=== PATIENT | male | born 1970 | race Hispanic/Latino ===

== ENCOUNTER 2018-10-25 12:47 | Observation (INO) | payer SELFPAY ==
[2018-10-25 13:53] LABS: Absolute Lymphocytes (CBC) 2.5 K/uL (0.7-4.9); Absolute Monocytes 0.6 K/uL (0.1-1.3); Absolute Neutrophil 5.3 K/uL (1.8-8.0); Basophils % 0.4 % (0-1.3); Eosinophils % 1.7 % (0-4.4); Hematocrit 46.1 % (39.6-49.0); MPV 9.4 fL (7.6-11.3); Monocytes % 7.3 % (3.3-12.3); RBC Red Blood Cell Count 5.42 M/uL (4.33-5.43)
--- NOTE | 2018-10-25 14:18 | RAD REPORT ---
EXAM DESCRIPTION: RAD - Chest Single View - 10/25/2018 2:04 pm CLINICAL HISTORY: CHEST PAIN Chest pain. COMPARISON: No comparisons FINDINGS: Portable technique limits examination quality. The lungs are grossly clear. The heart is normal in size. No displaced fractures. IMPRESSION: No acute intrathoracic process suspected.
[2018-10-25 14:22] LABS: ALT/SGPT 35 U/L (12-78); AST/SGOT 22 U/L (15-37); Albumin 3.7 g/dL (3.4-5.0); Alkaline Phosphatase 90 U/L (45-117); BUN Blood Urea Nitrogen 18 mg/dL (7-18); Bicarbonate 26 mmol/L (21-32); Bilirubin Direct 0.1 mg/dL (0-0.2); Bilirubin Total 0.5 mg/dL (0.2-1.0); Glucose Level 106 mg/dL (74-106); Lipase 143 U/L (73-393); NT PRO-BNP 24 pg/mL (<125); Potassium 4.1 mmol/L (3.5-5.1); Protein, Total 7.7 g/dL (6.4-8.2); Sodium Level 143 mmol/L (136-145); Troponin (Emerg Dept Use Only) < 0.02 ng/mL (0.0-0.045)
[2018-10-25] MEDS ORDERED: NA CHLORIDE 0.9% 1,000 ML ONE (14:23)
--- NOTE | 2018-10-25 15:22 | ER ---
Nurse's Notes [facility] Name: Efrain Landin Age: 48 yrs Sex: Male : 1970 Arrival Date: 10/25/2018 Time: 12:51 Bed 24 Private MD: Diagnosis: Chest pain, unspecified Presentation: 10/25 13:03 Presenting complaint: Patient states: "I was climbing up a ladder about 300 feet when I aa5 started feeling dizzy, my feet were numb, and I got a sharp pain in my stomach". pt also reports vomiting. Pt currently denies symptoms. Transition of care: patient was not received from another setting of care. Onset of symptoms was October 25, 2018. Risk Assessment: Do you want to hurt yourself or someone else? Patient reports no desire to harm self or others. Initial Sepsis Screen: Does the patient meet any 2 criteria? No. Patient's initial sepsis screen is negative. Does the patient have a suspected source of infection? No. Patient's initial sepsis screen is negative. Care prior to arrival: None. 13:03 Method Of Arrival: Ambulatory aa5 13:03 Acuity: ANGELA 3 aa5 Historical: - Allergies: 13:05 No Known Allergies; aa5 - Home Meds: 13:05 None [Active]; aa5 - PMHx: 13:05 None; aa5 - PSHx: 13:05 Knee surgery; aa5 - Immunization history:: Adult Immunizations unknown. - Social history:: Smoking status: Patient/guardian denies using tobacco. - Ebola Screening: : No symptoms or risks identified at this time. - Family history:: not pertinent. - Hospitalizations: : No recent hospitalization is reported. Screenin:00 Abuse screen: Denies threats or abuse. Nutritional screening: No deficits noted. tl3 Tuberculosis screening: No symptoms or risk factors identified. Fall Risk None identified. Assessment: 14:00 General: Appears in no apparent distress. comfortable, well groomed, well developed, tl3 well nourished, Behavior is calm, cooperative, appropriate for age. Pain: Denies pain. Neuro: Level of Consciousness is awake, alert, obeys commands, Oriented to person, place, time, situation, Appropriate for age Reports dizziness. Cardiovascular: Patient's skin is warm and dry. Respiratory: Airway is patent Respiratory effort is even, unlabored, Respiratory pattern is regular, symmetrical. GI: Abdomen is round. : No signs and/or symptoms were reported regarding the genitourinary system. EENT: No signs and/or symptoms were reported regarding the EENT system. 15:20 Reassessment: Patient appears in no apparent distress at this time. No changes from tl3 previously documented assessment. Patient and/or family updated on plan of care and expected duration. Pain level reassessed. Patient is alert, oriented x 3, equal unlabored respirations, skin warm/dry/pink. no needs at this time. 16:40 Reassessment: Patient appears in no apparent distress at this time. No changes from tl3 previously documented assessment. Patient and/or family updated on plan of care and expected duration. Pain level reassessed. Patient is alert, oriented x 3, equal unlabored respirations, skin warm/dry/pink. sandwich and drink offered. 19:03 Reassessment: Patient appears in no apparent distress at this time. No changes from tl3 previously documented assessment. Patient and/or family updated on plan of care and expected duration. Pain level reassessed. Patient is alert, oriented x 3, equal unlabored respirations, skin warm/dry/pink. awaiting transfer to room. 19:30 Reassessment: nurses still in report upstairs Shruthi will call [facility] for report. tl3 Vital Signs: 13:05 BP 117 / 84; Pulse 81; Resp 16 S; Temp 97.1(TE); Pulse Ox 95% on R/A; Weight 117.93 kg aa5 (R); Height 5 ft. 6 in. (167.64 cm) (R); Pain 0/10; 13:55 BP 126 / 79; Pulse 65; Resp 24 S; Pulse Ox 97% on R/A; Pain 0/10; jp3 14:00 BP 120 / 80; Pulse 58; Resp 18; Pulse Ox 97% ; tl3 15:20 BP 136 / 80; Pulse 58; Resp 18; Pulse Ox 99% on R/A; tl3 16:40 BP 122 / 62; Pulse 51; Resp 16; Pulse Ox 99% on R/A; tl3 19:03 BP 139 / 92; Pulse 58; Resp 18; Pulse Ox 99% on R/A; tl3 13:05 Body Mass Index 41.96 (117.93 kg, 167.64 cm) aa5 ED Course: 12:51 Patient arrived in ED. mr 13:03 Arm band placed on. aa5 13:04 Triage completed. aa5 13:10 Sigifredo Guzman MD is Attending Physician. rn 13:40 Initial lab(s) drawn, by me, sent to lab. Inserted saline lock: 20 gauge in right jp3 antecubital area, using aseptic technique. Blood collected. 13:46 EKG done, by donor services technician. reviewed by Sigifredo Guzman MD. 3 14:01 X-ray completed. Portable x-ray completed in exam room. Patient tolerated procedure sw well. 14:01 Bed in low position. Call light in reach. Side rails up X 1. security monitor on. Pulse jp3 ox on. NIBP on. 14:02 Lipase Sent. jp3 14:02 Basic Metabolic Panel Sent. jp3 14:02 LFT's Sent. jp3 14:02 NT PRO-BNP Sent. jp3 14:02 Troponin (emerg Dept Use Only) Sent. jp3 14:02 XRAY Chest (1 view) Sent. jp3 14:05 XRAY Chest (1 view) In Process Unspecified. EDHI 14:10 Salud Cuellar, RN is Primary Nurse. tl3 15:00 No provider procedures requiring assistance completed. Patient admitted, IV remains in tl3 place. 15:21 Lynda Mendoza MD is Hospitalizing Provider. rn 19:04 Urine Dipstick--Ancillary (enter results) Sent. tl3 Administered Medications: 14:18 Drug: NS 0.9% 500 ml Route: IV; Rate: bolus; Site: right antecubital; Delivery: Primary tl3 tubing; 15:25 Follow up: IV Status: Completed infusion; IV Intake: 1000ml tl3 Point of Care Testing: Blood Glucose: 13:40 Blood Glucose: 110 mg/dL; jp3 Ranges: Intake: 15:25 IV: 1000ml; Total: 1000ml. tl3 Outcome: 15:22 Decision to Hospitalize by Provider. rn 20:27 Patient left the ED. tl3 20:27 Admitted to [facility] tl3 20:27 Condition: stable 20:27 Instructed on the need for admit. Signatures: Dispatcher [employer] EDHI Flores Aguayo mr Sigifredo Guzman MD MD rn Calderon, Audri, RN RN aa5 Kavitha Melendez Tammy, RN RN tl3 Muna Sabillon sm3 Delfino Pardo jp3
--- NOTE | 2018-10-25 15:23 | EDPHYS ---
Physician Documentation [facility] Name: Efrain Landin Age: 48 yrs Sex: Male : 1970 Arrival Date: 10/25/2018 Time: 12:51 Bed 24 Private MD: ED Physician Sigifredo Guzman HPI: 10/25 13:37 This 48 yrs old Male presents to ER via Ambulatory with complaints of rn Dizziness, chest pain. 13:37 The patient presents with dizziness, lightheadedness. Onset: The symptoms/episode rn began/occurred just prior to arrival. Modifying factors: The symptoms are alleviated by nothing, the symptoms are aggravated by nothing. Severity of symptoms: At their worst the symptoms were moderate in the emergency department the symptoms have improved. The patient has not experienced similar symptoms in the past. Reports climbing structure at work, felt lightheaded, tingling to both feet, left sided chest pain, threw up one time, now resolved. No known cardiac problems. . Historical: - Allergies: 13:05 No Known Allergies; aa5 - Home Meds: 13:05 None [Active]; aa5 - PMHx: 13:05 None; aa5 - PSHx: 13:05 Knee surgery; aa5 - Immunization history:: Adult Immunizations unknown. - Social history:: Smoking status: Patient/guardian denies using tobacco. - Ebola Screening: : No symptoms or risks identified at this time. - Family history:: not pertinent. - Hospitalizations: : No recent hospitalization is reported. ROS: 13:37 Constitutional: Negative for fever, chills, and weight loss, Eyes: Negative for injury, rn pain, redness, and discharge, Neck: Negative for injury, pain, and swelling, Cardiovascular: Negative for palpitations, and edema, Respiratory: Negative for shortness of breath, cough, wheezing, and pleuritic chest pain, Abdomen/GI: Negative for abdominal pain, diarrhea, and constipation, MS/Extremity: Negative for injury and deformity, Skin: Negative for injury, rash, and discoloration, Neuro: Negative for headache, weakness, numbness, tingling, and seizure. Exam: 13:37 Constitutional: This is a well developed, well nourished patient who is awake, alert, rn and in no acute distress. Head/Face: Normocephalic, atraumatic. Eyes: Pupils equal round and reactive to light, extra-ocular motions intact. Lids and lashes normal. Conjunctiva and sclera are non-icteric and not injected. Cornea within normal limits. Periorbital areas with no swelling, redness, or edema. Neck: Trachea midline, no thyromegaly or masses palpated, and no cervical lymphadenopathy. Supple, full range of motion without nuchal rigidity, or vertebral point tenderness. No Meningismus. Cardiovascular: Regular rate and rhythm with a normal S1 and S2. No gallops, murmurs, or rubs. No JVD. No pulse deficits. Respiratory: Lungs have equal breath sounds bilaterally, clear to auscultation. No increased work of breathing, no retractions or nasal flaring. Abdomen/GI: soft, non-tender Skin: Warm, dry with normal turgor. Normal color with no rashes, no lesions, and no evidence of cellulitis. MS/ Extremity: Pulses equal, no cyanosis. Neurovascular intact. Full, normal range of motion. Equal circumference. Neuro: Awake and alert, GCS 15, oriented to person, place, time, and situation. Cranial nerves II-XII grossly intact. Motor strength 5/5 in all extremities. Sensory grossly intact. Cerebellar exam normal. Vital Signs: 13:05 BP 117 / 84; Pulse 81; Resp 16 S; Temp 97.1(TE); Pulse Ox 95% on R/A; Weight 117.93 kg aa5 (R); Height 5 ft. 6 in. (167.64 cm) (R); Pain 0/10; 13:55 BP 126 / 79; Pulse 65; Resp 24 S; Pulse Ox 97% on R/A; Pain 0/10; jp3 14:00 BP 120 / 80; Pulse 58; Resp 18; Pulse Ox 97% ; tl3 15:20 BP 136 / 80; Pulse 58; Resp 18; Pulse Ox 99% on R/A; tl3 16:40 BP 122 / 62; Pulse 51; Resp 16; Pulse Ox 99% on R/A; tl3 19:03 BP 139 / 92; Pulse 58; Resp 18; Pulse Ox 99% on R/A; tl3 13:05 Body Mass Index 41.96 (117.93 kg, 167.64 cm) aa MDM: 13:10 Patient medically screened. rn 15:21 Differential diagnosis: cardiac arrhythmia, hypovolemia, idiopathic dizziness, TIA, [place], golf tournament consultant event. Data reviewed: vital signs, nurses notes, lab test result(s), EKG, radiologic studies, and as a result, I will admit patient. Counseling: I had a detailed discussion with the patient and/or guardian regarding: the historical points, exam findings, and any diagnostic results supporting the discharge/admit diagnosis, lab results, radiology results, the need for further work-up and treatment in the hospital. Admission orders: after a detailed discussion of the patient's condition and case, the admit orders are written by me. 10/25 13:17 Order name: Basic Metabolic Panel; Complete Time: 14:27 rn 10/25 13:17 Order name: CBC with Diff; Complete Time: 14:27 rn 10/25 13:17 Order name: LFT's; Complete Time: 14:27 rn 10/25 13:17 Order name: NT PRO-BNP; Complete Time: 14:27 rn 10/25 13:17 Order name: Troponin (emerg Dept Use Only); Complete Time: 14:27 rn 10/25 13:17 Order name: Lipase; Complete Time: 14:27 rn 10/25 13:17 Order name: XRAY Chest (1 view); Complete Time: 14:27 rn 10/25 13:17 Order name: EKG; Complete Time: 13:18 rn 10/25 13:17 Order name: Cardiac monitoring; Complete Time: 14:02 rn 10/25 13:17 Order name: EKG - Nurse/Tech; Complete Time: 14:02 rn 10/25 13:17 Order name: IV Saline Lock; Complete Time: 14:02 rn 10/25 13:17 Order name: Labs collected and sent; Complete Time: 14:03 rn 10/25 17:56 Order name: Urine Dipstick--Ancillary (enter results) bd 10/25 13:17 Order name: O2 Per Protocol; Complete Time: 14:03 rn 10/25 13:17 Order name: O2 Sat Monitoring; Complete Time: 14:03 rn 10/25 13:17 Order name: Glucose Level; Complete Time: 14:02 rn Administered Medications: 14:18 Drug: NS 0.9% 500 ml Route: IV; Rate: bolus; Site: right antecubital; Delivery: Primary tl3 tubing; 15:25 Follow up: IV Status: Completed infusion; IV Intake: 1000ml tl3 Point of Care Testing: Blood Glucose: 13:40 Blood Glucose: 110 mg/dL; jp3 Ranges: Critical Glucose Levels:Adult <50 mg/dl or >400 mg/dl <40 mg/dl or >180 mg/dl Disposition: 10/25/18 15:22 Hospitalization ordered by Lynda Mendoza for Observation. Preliminary diagnosis is Chest pain, unspecified. - Bed requested for Telemetry/MedSurg (observation). - Status is Observation. tl3 - Condition is Stable. - Problem is new. - Symptoms have improved. UTI on Admission? No Signatures: Dispatcher [employer] EDMS Carolina Saldana Roman, MD MD rn Calderon, Audri RN RN aa5 Salud Cuellar RN RN tl3 Corrections: (The following items were deleted from the chart) 17:12 15:22 Hospitalization Ordered by Lynda Mendoza MD for Observation. Preliminary diagnosis bd is Chest pain, unspecified. Bed requested for Telemetry/MedSurg (observation). Status is Observation. Condition is Stable. Problem is new. Symptoms have improved. UTI on Admission? No. rn 20:27 17:12 10/25/2018 15:22 Hospitalization Ordered by Lynda Mendoza MD for Observation. tl3 Preliminary diagnosis is Chest pain, unspecified. Bed requested for Telemetry/MedSurg (observation). Status is Observation. Condition is Stable. Problem is new. Symptoms have improved. UTI on Admission? No. bd
--- NOTE | 2018-10-25 17:09 | EKG ---
Test Date: 2018-10-25 Test Time: 13:19:40 [employer]fuels Production Manager: ARYAN MEASUREMENT RESULTS: Intervals: Rate: 58 HI: 154 QRSD: 104 QT: 410 QTc: 402 [place]: P: 48 HI: 154 QRS: 56 T: 8 INTERPRETIVE STATEMENTS: Sinus bradycardia with sinus arrhythmia Otherwise normal ECG No previous ECG available for comparison Electronically Signed On 10-25-18 17:09:[address] REPORTER by Dane Friedman
[2018-10-25 20:38] VITALS: BMI 42.2
[2018-10-25] MEDS ORDERED: ACETAMINOPHEN 500 MG TAB PO PRN (20:39)
[2018-10-25] MEDS ORDERED: NITROGLYCERIN 0.4 MG/TAB SL PRN (20:39)
[2018-10-25] MEDS ORDERED: ZOLPIDEM TARTRATE 5 MG TABLET PO PRN (20:39)
[2018-10-25] MEDS ORDERED: ALPRAZOLAM 0.25 MG TABLET PO PRN (20:39)
[2018-10-25] MEDS ORDERED: MORPHINE 4 MG/ML SYR IV PRN (20:39)
[2018-10-25] MEDS ORDERED: GABAPENTIN 300 MG CAP PO SCH (21:00)
[2018-10-25] MEDS: ENOXAPARIN 40 MG/0.4 ML SQ SCH (22:17)
--- NOTE | 2018-10-26 04:04 | HP ---
Date of Admission: 10/25/2018 Chief Complaint: Chest pain. Consultants: Dr. Friedman, Cardiology. History Of Present Illness: The patient is a 48-year-old male with no significant past medical histo ry, who was in his usual state of health. 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 He experienced some tingling in his feet and then started developing some chest pain, which was retrosternal. He also reported some nausea, diaphoresis. He started to descend at around 100 feet. He ended up vomiting once he was on ground level. He was evaluated by is work associates. He experienced further pain in his chest radiating to his back. He is unable to clarify where the origination of the pain is. Due to his concerning symptoms, he was brought into [facility] ER for further evaluation. His symptoms were constant, moderate, progressively worsening. The amdyson de jesus was then evaluated in the ER. His workup showed negative troponin level and normal EKG. White cell count was normal. He did complain of some tingling, which is intermittent in his feet. Chest x-ray was also negative. The patient was referred for admission. When seen in the ER, he was awake, alert, oriented x3, in some mild distress. Past Medical History: None. Surgical History: Knee arthroscopy. Allergies: NO KNOWN DRUG ALLERGIES. Medications: None. Family History: Brother and father have diabetes. Paternal uncle had NM at age of 56. Social History: The patient smoked remotely when he was 18, has not smoked since. He used to drink heavy alcohol, however, quit about 7 years ago. No illicit drug use or IV drug use. Review of Systems: An 11-point system reviewed, negative except as per HPI. Physical Examination: Vital Signs: Blood pressure 117/84, pulse 81, respirations 16, temperature 97.1, O2 95% on room air. General: Awake, alert, oriented x3, in some mild distress. Obese male, ill-appearing. HEENT: Normocephalic, atraumatic. PERRLA. EOMI. Moist mucous membranes. Oropharynx is clear. Co njunctivae anicteric. Neck: Supple. No JVD. Trachea midline. CVS: S1 and S2. Sinus bradycardia. Peripheral pulses present. No murmurs. Respiratory: Moving air well bilaterally. No wheezing or stridor. No use of accessory muscles. Gastrointestinal: Abdomen is soft, nontender, nondistended. Positive bowel sounds. No guarding or rigidity. Extremities: No clubbing, cyanosis, or edema. No calf tenderness. Neuro: Cranial nerves 2-12 intact grossly. No focal neurological deficits. Strength is 5/5 bilater al upper and lower extremities. Speech is normal. The patient has normal sensation to light touch i n the lower extremities. Skin: The patient does have some dry ulcers and abrasions on the sole of the foot bilaterally. No e rythema. Psych: Mood is okay. Affect is full. Insight and judgment are good. Laboratory Data: WBC 8.7, H and H 15.6 and 46.1, platelets 224. Sodium 143, potassium 4.1, chloride 110, CO2 26, BUN 18, creatinine 1.12, glucose 106, calcium 8.8. Troponin less than 0.02. Chest x-r ay, personally reviewed, shows no acute intrathoracic process. Assessment: A 48-year-old male with: 1.Chest pain, rule out acute coronary syndrome. May be related to anxiety versus other musculoskele guerda type of chest pain. Cardiac enzymes have been negative. We will check serial cardiac enzymes an d EKG. Consult Cardiology. Obtain echocardiogram. Start on chest pain guidelines. 2.Obesity. 3.Gastrointestinal/deep venous thrombosis prophylaxis with Lovenox. Plan: 1.Admit the patient to Med-Surg, place as observation. We will check hemoglobin A1c to rule out sanjay betes. 2.Numbness and tingling, bilateral lower extremities, maybe neuropathy. 3.Once ACS is ruled out, likely discharge in the next 24 hours. /MICHELLE Voice ID: [id number]
[2018-10-26 05:50] LABS: Absolute Lymphocytes (CBC) 3.1 K/uL (0.7-4.9); Absolute Monocytes 0.7 K/uL (0.1-1.3); Absolute Neutrophil 4.2 K/uL (1.8-8.0); Basophils % 0.7 % (0-1.3); Eosinophils % 3.2 % (0-4.4); Hematocrit 42.7 % (39.6-49.0); Lymphocytes % 37.2 % (15.3-44.8); MPV 9.8 fL (7.6-11.3); Monocytes % 8.1 % (3.3-12.3); RBC Red Blood Cell Count 5.03 M/uL (4.33-5.43)
[2018-10-26 06:48] LABS: Potassium 4.2 mmol/L (3.5-5.1)
[2018-10-26] MEDS ORDERED: D50W 25 GM/50 ML SYRINGE IV PRN ×2 (08:45→08:46)
[2018-10-26] MEDS ORDERED: GLUCAGON 1 MG/VIAL IM PRN ×2 (08:45→08:46)
[2018-10-26] MEDS ORDERED: ASPIRIN EC 81 MG TAB PO SCH (09:00)
[2018-10-26] MEDS ORDERED: LISINOPRIL 10 MG TAB PO SCH (09:00)
[2018-10-26] MEDS: ENOXAPARIN 40 MG/0.4 ML SQ SCH (10:08)
[2018-10-26 10:23] VITALS: O2SAT 98
[2018-10-26] MEDS ORDERED: INSULIN -REGULAR HUMAN 50 UNIT/0.5 ML ML SQ SCH (11:30)
[2018-10-26] MEDS: INSULIN -REGULAR HUMAN 50 UNIT/0.5 ML ML SQ SCH ×2 (11:30→15:51)
[2018-10-26] MEDS ORDERED: INFLUENZA VACCINE (for 3y+) 0.5 ML DOSE IMVAC ONE (12:00)
--- NOTE | 2018-10-26 13:16 | CON ---
History Of Present Illness: Mr. Landin was climbing a tower. His feet started tingling, so he came d own and then he noted chest pain. The pain was in the front part of his chest, it went away after se veral hours. He came to the emergency room and since being here, EKGs, enzymes, and other blood test s are not suggestive of this being an acute coronary syndrome. The patient has no previous history o f myocardial infarction or stroke. Several years ago, he had a head injury, an industrial accident, and had amnesia, and other signs of concussion. Does not have a seizure disorder. He takes no medic ations. Uses no tobacco, alcohol, or illegal drugs. Physical Examination: General: 5 Feet 6 inches, 261 pounds. HEENT: Normal. Lungs: Clear. Heart: Within normal limits. Abdomen: Soft. Extremities: Normal. Carotids: No bruit. Impression: The patient had some kind of unknown event. I have my doubts whether it was a coronary event, and his previous head trauma could have been a partial complex seizure or something like that, but since he has borderline glucose intolerance hemoglobin A1c 6.6, and has very high triglyceride l evels, we have to consider the patient at risk for CAD even at his young age. We will do a nuclear s tress test and echo, and see what we learn. If those are abnormal, we will consider cardiac cath. ARELY/MICHELLE Voice ID: [id number] Report ID: [id number]
--- NOTE | 2018-10-26 15:56 | RAD REPORT ---
EXAM DESCRIPTION: NM - Rest Stress Cardiac Imaging - 10/26/2018 3:39 pm CLINICAL HISTORY: CHEST PAIN, AK WAS RULED OUT Chest pain. COMPARISON: No comparisons TECHNIQUE: The patient was administered approximately 10mCi of Tc 99m Sestamibi prior to resting SPE CT imaging of the heart. The patient was then administered approximately 30 mCi of Tc 99m Sestamibi f ollowing exercise or pharmacologic stress. Multiplanar SPECT images were reviewed. FINDINGS: No stress induced ischemic defect is seen to suggest stress induced ischemia. No fixed def ect is seen to suggest hibernating myocardium or scarred myocardium. The end diastolic volume is 142 ml, the end systolic volume is 72 ml, and the ejection fraction is 50 %. IMPRESSION: No stress induced ischemia.
[2018-10-26 16:28] VITALS: BP 122/65; TEMP 98.8
[2018-10-26] MEDS ORDERED: ATORVASTATIN 40 MG TAB PO SCH (21:00)
--- NOTE | 2018-10-27 03:53 | DS ---
Date of Discharge: 10/26/2018 Consultants: Dr. Friedman with Cardiology. Procedures: Cardiac stress test shows no stress-induced ischemia on 10/26/2018. Discharge Diagnoses: 1.Chest pain. Acute coronary syndrome ruled out, atypical chest pain. 2.New onset diabetes mellitus type 2. Hemoglobin A1c 6.6%. 3.Morbid obesity, BMI 42. 4.Diabetic neuropathy, improved with gabapentin. 5.Hypertriglyceridemia. Hospital Course: The patient is a 48-year-old male who came into the hospital for chest pain. He wa s admitted to the hospital for further workup. ACS was ruled out. This was thought to be atypical c hest pain. He did have some point tenderness on the lateral left chest wall. Cardiology was consult ed. Echocardiogram was obtained which showed no wall motion abnormality. His ejection fraction was normal. The patient underwent nuclear stress test which was negative, did not show any stress-induce d ischemia. The patient did complain of neuropathy in his feet. He did have hyperglycemia. Hemoglo bin A1c was elevated at 6.6. He was diagnosed with diabetes. He will be started on metformin 500 da mercy to be titrated up slowly to a maximum dose of 1 g twice a day by his primary care physician. The patient was counseled regarding the effects of uncontrolled diabetes including neuropathy, nephropat hy and retinopathy. The patient was also counseled regarding his elevated triglyceride level and his weight. He was counseled regarding exercise and diet management. He was set up with diabetic educa tion as an outpatient. The patient also provided a list of PCPs which he will need to have his chron ic medical conditions surveilled and for refills. The patient was then cleared for discharge from Ca rdiology standpoint. He was then discharged home in a stable condition. Activity: As tolerated. Medications: As per medication reconciliation list. Followup: Follow up with primary care physician in 2-3 days. Follow up with human resources operations specialist, Dr. Gemma vidal, in 2 weeks. Return to ER for worsening condition. Diet: Diabetic. Physical Examination: General: Awake, alert, oriented, no acute distress. CV: S1, S2. No murmurs. Respiratory: Moving air well bilaterally. Abdomen: Soft, nontender, nondistended. Positive bowel sounds. Extremities: No clubbing, cyanosis, or edema. Neuro: Nonfocal. The patient does have some decreased sensation to light touch bilateral feet. SA/MODL Voice ID: [id number] Report ID: [id number]
--- NOTE | 2018-10-27 07:17 | ECHO ---
HEIGHT: 5 ft 6 in WEIGHT: 261 lb 11.2 oz DATE OF STUDY: 10/26/[address]: Lynda Mendoza MD 2-DIMENSIONAL: YES M.MODE: YES DOPPLER: YES COLOR FLOW: YES TDS: PORTABLE: DEFINITY: BUBBLE STUDY: DIAGNOSIS: CHEST PAIN CARDIAC HISTORY: CATHERIZATION: NO SURGERY: NO PROSTHETIC VALVE: NO PACEMAKER: NO MEASUREMENTS (cm) DIASTOLIC (NORMALS) SYSTOLIC (NORMALS) IVSd 1.2 (0.6-1.2) LA Diam 3.5 (1.9-4.0) LVEF 64% LVIDd 4.7 (3.5-5.7) LVIDs 3.1 (2.0-3.5) %FS 35% LVPWd 1.2 (0.6-1.2) Ao Diam 3.0 (2.0-3.7) 2 DIMENSIONAL ASSESSMENT: RIGHT ATRIUM: NORMAL LEFT ATRIUM: NORMAL RIGHT VENTRICLE: NORMAL LEFT VENTRICLE: NORMAL TRICUSPID VALVE: NORMAL MITRAL VALVE: NORMAL PULMONIC VALVE: NORMAL AORTIC VALVE: NORMAL PERICARDIAL EFFUSION: NONE AORTIC ROOT: NORMAL LEFT VENTRICULAR WALL MOTION: DOPPLER/COLOR FLOW: PHYSIOLOGIC TRICUSPID REGURGITATION. NORMAL RIGHT VENTRICULAR SYSTOLIC PRESSURE. COMMENTS: NORMAL 2-DIMENSIONAL ECHOCARDIOGRAM. TECHNOLOGIST: DELORIS COLLINS
--- NOTE | 2018-10-27 08:01 | TREADMILL ---
70% H.R.: 122 85% H.R.: 148 90% H.R.: 157 100% H.R.: 174 DX: CHEST PAIN. MYOCARDIAL INFARCTION WAS RULED OUT Date of Study: 10/26/2018 Ht: 5 6 Wt: 261 lb 11.2 oz Consulting Physician: GINETTE MEDICATIONS: TYLENOL, XANAX, ASPIRIN, LIPITOR, DEXTROSE, LOVENOX, NEURONTIN, GLUCAGEN, NOVOLIN-R, PRINIVIL, MORPHINE SULFATE, NITROSTAT, AMBIEN HISTORY: 48 YEAR OLD MALE WITH COMPLAINTS OF CHEST PAIN. HISTORY OF KNEE SURGERY AND NON-SMOKER. PHYSICIAL EXAMINATION: RESTING B.P.: 120/77 RESTING H.R.: 71 RESTING EKG: NORMAL PROTOCOL: PAVEL CARDIOLITE EXERCISE TIME: 11:50 MAXIMUM HEART RATE: 148 85 % OF PREDICTED B.P. AT PEAK STRESS: 195/94 POST B.P: 146/81 H.R. AT 1 MINUTE POST EXERCISE: 136 IMPRESSION: CARDIOLITE INJECTED AFTER TARGET HEART RATE REACHED PER PROTOCOL. SEE NUCLEAR MEDICINE REPORT. NO SUPRAVENTRICULAR TACHYCARDIA. NO VENTRICULAR TACHYCARDIA. NO PREMATURE ATRIAL COMPLEXES. NO PREMATURE VENTRICULAR COMPLEXES. PATIENT REPORTED NO CHEST PAIN, OR TIGHTNESS DURING PROCEDURE OR DURING RECOVERY. NO ST CHANGE WITH STRESS. NORMAL ELECTROCARDIOGRAM STRESS TEST.
== END 2018-10-26 18:25 | disposition home or self-care (01) ==
LOC: ER 12:47 → ERHOLD 16:02 → 4TH 20:08
PROVIDERS: ADMIT Family Medicine; ATTEND Family Medicine
DX: R07.9 Chest pain, unspecified (principal); E11.40 Type 2 diabetes mellitus with diabetic neuropathy, unspecified; E66.01 Morbid (severe) obesity due to excess calories; Z68.41 Body mass index [BMI] 40.0-44.9, adult; E78.1 Pure hyperglyceridemia
CPT/HCPCS: 36415; 71045; 78452; 80048; 80061; 80076; 82962; 83036; 83690; 83880; 84484; 85025; 93005; 93017; 93306; 94760; 96360; 99285; A9500; G0378; J1650; J7030